=== PATIENT | male | born 1955 | race Caucasian/White ===

== ENCOUNTER 2020-03-15 16:44 | Inpatient (IN) | payer OTHER ==
[~2020-03-15] VITALS: Ht 193 cm; Wt 78.6 kg
[2020-03-15 17:42] LABS: Basophils # (auto) 0 10 ^3/uL (0-0.2); Basophils % (auto) 0.4 % (0.0-2.0); Eosinophils # (auto) 0.1 10 ^3/uL (0-0.8); Eosinophils % (auto) 0.8 % (0.0-7.0); Hematocrit 42.3 % (41.0-53.0); Hemoglobin 14.9 g/dL (13.5-17.5); Lymphocytes # (auto) 1.7 10 ^3/uL (0.4-5.4); Lymphocytes % (auto) 22.7 % (10.0-50.0); Mean Corpuscular Hemoglobin 32.6 pg (28.0-32.0); Mean Corpuscular Hgb Conc. 35.3 g/dL (32.0-36.0); Mean Corpuscular Volume 92.4 fL (80.0-100.0); Monocytes # (auto) 0.5 10 ^3/uL (0-1.3); Monocytes % (auto) 6.3 % (0.0-12.0); Neutrophils # (auto) 5.2 10 ^3/uL (1.6-8.6); Neutrophils % (auto) 69.8 % (37.0-80.0); Nucleated Red Blood Cells % 0.1 %; Platelet Count (auto) 238 10^3/uL (140-450); Red Blood Cells 4.57 10^6/uL (4.5-5.90); Red Cell Distribution Width 13.4 % (11.8-14.3); White Blood Cell 7.5 10^3/uL (4.4-10.8)
[2020-03-15 17:57] LABS: Albumin 3.8 g/dL (3.4-5.0); Anion Gap 7 (5-15); Blood Urea Nitrogen 9 mg/dL (7-18); Calcium 8.7 mg/dL (8.5-10.1); Carbon Dioxide 25 mmol/L (21-32); Chloride 101 mmol/L (98-107); Glucose 77 mg/dL (74-106); Potassium 4.2 mmol/L (3.5-5.1); Sodium 133 mmol/L (136-145)
[2020-03-15 17:59] LABS: Alanine Aminotransferase 21 U/L (16-61); Aspartate Aminotransferase 14 U/L (15-37); BUN/Creatinine Ratio 9.9; GFR African American 108 mL/min; GFR Non-African American 89 mL/min
[2020-03-15 18:03] LABS: Alkaline Phosphatase 63 U/L (45-117); Total Protein 7.3 g/dL (6.4-8.2)
[2020-03-15 19:16] LABS: CRP High Sensitivity 0.21 mg/dL (< 0.3)
[2020-03-15] MEDS ORDERED: FUROSEMIDE 40 MG/4 ML VIAL IV ONE (19:30)
[2020-03-15] MEDS ORDERED: MORPHINE SULFATE 4 MG/ML SYR/VIAL IV ONE (20:00)
[2020-03-15] MEDS ORDERED: HYDROmorphone HCL 2 MG/ML VL IV ONE (21:00)
[2020-03-15] MEDS ORDERED: ONDANSETRON HCL 4 MG/2 ML VIAL IV PRN (21:45)
[2020-03-15] MEDS ORDERED: TEMAZEPAM 15 MG CAP PO PRN (21:45)
[2020-03-15] MEDS ORDERED: ACETAMINOPHEN 325 MG TAB PO PRN (21:45)
[2020-03-15] MEDS ORDERED: cloNIDine HCL 0.1 MG TAB PO PRN (21:45)
[2020-03-15] MEDS ORDERED: NITROGLYCERIN 0.4 MG SL TAB SL PRN (22:00)
[2020-03-15] MEDS: METOPROLOL TARTRATE 25 MG TAB PO SCH (23:07)
[2020-03-15] MEDS: FAMOTIDINE 20 MG TAB PO SCH (23:08)
[2020-03-16 02:49] LABS: Cholesterol 256 mg/dL (< 200); HDL Cholesterol 55 mg/dL (40-59); LDL Cholesterol 180 mg/dL (< 100); Triglycerides 66 mg/dL (< 150)
[2020-03-16 03:42] VITALS: BP 119/80
[2020-03-16 04:40] LABS: Basophils # (auto) 0.1 10 ^3/uL (0-0.2); Eosinophils # (auto) 0.1 10 ^3/uL (0-0.8); Hematocrit 42.9 % (41.0-53.0); Hemoglobin 14.7 g/dL (13.5-17.5); Lymphocytes # (auto) 1.5 10 ^3/uL (0.4-5.4); Lymphocytes % (auto) 26.2 % (10.0-50.0); Mean Corpuscular Hemoglobin 31.9 pg (28.0-32.0); Mean Corpuscular Hgb Conc. 34.2 g/dL (32.0-36.0); Mean Corpuscular Volume 93.3 fL (80.0-100.0); Monocytes # (auto) 0.5 10 ^3/uL (0-1.3); Monocytes % (auto) 9.2 % (0.0-12.0); Neutrophils # (auto) 3.7 10 ^3/uL (1.6-8.6); Neutrophils % (auto) 62.6 % (37.0-80.0); Nucleated Red Blood Cells % 0.2 %; Platelet Count (auto) 204 10^3/uL (140-450); Red Blood Cells 4.59 10^6/uL (4.5-5.90); Red Cell Distribution Width 13.4 % (11.8-14.3); White Blood Cell 5.8 10^3/uL (4.4-10.8)
[2020-03-16 05:01] LABS: BUN/Creatinine Ratio 11.3; Calcium 8.3 mg/dL (8.5-10.1); Potassium 3.9 mmol/L (3.5-5.1)
--- NOTE | 2020-03-16 06:18 | NUR ---
RESPIRATORY HR 86, RR 18, SPO2 99% ON 5 L NC, BS CLEAR AND DIMINISHED. NO S/S OF RESPIRATORY DISTRESS NOTED. PT STATES HIS BREATHING FEELS A WHOLE LOT BETTER. INFORMED PT TO CALL IF FEELING SOB OR WHEEZING.PRN MED NEB TX NOT INDICATED AT THIS TIME.
[2020-03-16] MEDS: FUROSEMIDE 20 MG TAB PO SCH ×2 (06:19→17:44)
[2020-03-16] MEDS: ALBUTEROL SULF 2.5 MG/0.5ML(0.5%) NEB SOLN NEB PRN ×2 (08:22→12:41)
[2020-03-16] MEDS: ASPirin 81 mg TAB PO SCH (09:05)
[2020-03-16] MEDS: ENOXAPARIN SOD 40 MG/0.4 ML SYRINGE SC SCH (09:06)
[2020-03-16] MEDS: FAMOTIDINE 20 MG TAB PO SCH ×2 (09:06→20:53)
[2020-03-16] MEDS: METOPROLOL TARTRATE 25 MG TAB PO SCH ×2 (09:06→21:17)
[2020-03-16] MEDS: CLOPIDOGREL BISULFATE 75 MG TAB PO SCH (09:06)
[2020-03-16] MEDS: HYDROcodone-ACET 5/325MG TAB PO PRN ×2 (13:10→20:54)
--- NOTE | 2020-03-16 15:10 | NUR ---
Telemetry admit from [facility] admitted to Telemetry unit,Patient oriented to primary RN, unit, room, bed, and unit policies regarding patient care and visiting hours. Patient now on continuous telemetry monitoring, tele box #[id number] and telemetry reading on arrival to unit is sinus rhythm 69. Patient placed on bedside oxygen at 1liter nasal cannula,vital signs taken bp133/80,temp:97.8,rr18,hr 72,o2 saturaton 95%,c/o back and neck chronic pain 01/15,patient stated does not need pain medication. call light within reach,encouraged to call for assistance,needs attended. All questions and concerns addressed, patient verbalized understanding.
[2020-03-16 16:37] VITALS: BP 113/70
[2020-03-16 17:00] VITALS: BP 133/80
[2020-03-16] MEDS ORDERED: TIOT1AER2 IN (18:00)
[2020-03-16] MEDS ORDERED: ASPI-404 PO (18:00)
[2020-03-16] MEDS ORDERED: IPRAAER6 IN (18:00)
[2020-03-16] MEDS ORDERED: CLOP75TA28 PO (18:00)
[2020-03-16] MEDS ORDERED: [UNRECOGNIZED DRUG - CODE] PO (18:00)
[2020-03-16] MEDS ORDERED: ROSU40TA PO (18:02)
[2020-03-16] MEDS: ALBUTEROL SULF 2.5 MG/0.5ML(0.5%) NEB SOLN NEB SCH (18:53)
[2020-03-16] MEDS: IPRATROPIUM BROM 0.5 MG/2.5ML INH SOL NEB SCH (18:53)
[2020-03-16] MEDS: BUDESONIDE (INHALATION) 0.5 MG/2 ML NEB NEB SCH (18:53)
--- NOTE | 2020-03-16 19:00 | NUR ---
status unchanged no distress no discomfort
--- NOTE | 2020-03-16 19:50 | NUR ---
Opening Shift Note Assumed care of patient, awake and alert, oriented x 4, follows direction, clear speech. On oxygen at 1L via NC with even and unlabored respirations. No S/S of distress/SOB. Patient using urinal independently. Patient turns in bed independently. Bed in lowest locked position with side rails up x 2 and call light within reach. Instructed on POC and to call for assist PRN, will continue to monitor for changes Q1hr and PRN.
[2020-03-16] MEDS: ATORVASTATIN 20 MG TAB PO SCH (20:54)
[2020-03-16 22:00] VITALS: BP 126/78
[2020-03-16 23:17] LABS: Urine Bacteria NONE SEEN /hpf (None Seen); Urine Blood Negative /uL (Negative); Urine Specific Gravity 1.016 (1.001-1.035); Urine WBC <1 /hpf (0 - 3)
[2020-03-17] MEDS: IPRATROPIUM BROM 0.5 MG/2.5ML INH SOL NEB SCH ×4 (00:52→19:12)
[2020-03-17] MEDS: ALBUTEROL SULF 2.5 MG/0.5ML(0.5%) NEB SOLN NEB SCH ×4 (00:52→19:12)
--- NOTE | 2020-03-17 00:52 | NUR ---
Respiratory note: PT REFUSING 0000 SCHEDULED BREATHING TX AT THIS TIME AND WANTS TO SLEEP. PT REMAINS ON NC1L. NO RESP DISTRESS NOTED. SPO2 95%, HR 74, RR 16. WILL CONTINUE TO MONITOR PT T/O SHIFT.
[2020-03-17] MEDS: FUROSEMIDE 20 MG TAB PO SCH ×2 (04:57→17:55)
[2020-03-17 05:14] VITALS: BP 124/67
[2020-03-17 05:45] LABS: Basophils # (auto) 0.1 10 ^3/uL (0-0.2); Basophils % (auto) 0.9 % (0.0-2.0); Eosinophils # (auto) 0.1 10 ^3/uL (0-0.8); Eosinophils % (auto) 1.7 % (0.0-7.0); Hematocrit 41.9 % (41.0-53.0); Hemoglobin 14.4 g/dL (13.5-17.5); Lymphocytes # (auto) 1.5 10 ^3/uL (0.4-5.4); Lymphocytes % (auto) 25.9 % (10.0-50.0); Mean Corpuscular Hemoglobin 31.9 pg (28.0-32.0); Mean Corpuscular Hgb Conc. 34.4 g/dL (32.0-36.0); Mean Corpuscular Volume 92.8 fL (80.0-100.0); Monocytes # (auto) 0.5 10 ^3/uL (0-1.3); Neutrophils # (auto) 3.6 10 ^3/uL (1.6-8.6); Neutrophils % (auto) 63.5 % (37.0-80.0); Nucleated Red Blood Cells % 0.1 %; Platelet Count (auto) 193 10^3/uL (140-450); Red Blood Cells 4.52 10^6/uL (4.5-5.90); Red Cell Distribution Width 13.3 % (11.8-14.3); White Blood Cell 5.7 10^3/uL (4.4-10.8)
[2020-03-17 06:00] LABS: INR 0.98 (0.9-1.15)
[2020-03-17 06:35] LABS: BUN/Creatinine Ratio 18.4; Calcium 8.4 mg/dL (8.5-10.1); Potassium 3.9 mmol/L (3.5-5.1)
--- NOTE | 2020-03-17 06:49 | NUR ---
Closing Note patient resting in bed with even and unlabored respirations, no s/s of distress. Bed in lowest locked position with side rails up x2 and call light within reach.
--- NOTE | 2020-03-17 07:20 | NUR ---
Opening Shift Note RECEIVED REPORT FROM NOC RN. Assumed care of patient, awake and alert. No S/S of distress/SOB,C/O BACK AND NECK PAIN,PATIENT REASSURED WILL MEDICATE FOR PAIN. BED IN LOWEST, LOCKED POSITION WITH SIDE RAILS UP x2 AND CALL LIGHT WITHIN REACH. Instructed on POC,call light within reach patient reminded instructed to call for assistance.patient verbalized understanding.will continue to monitor for changes Q1hr and PRN.
[2020-03-17] MEDS: BUDESONIDE (INHALATION) 0.5 MG/2 ML NEB NEB SCH ×2 (07:41→19:16)
[2020-03-17] MEDS: HYDROcodone-ACET 5/325MG TAB PO PRN ×2 (08:22→17:13)
--- NOTE | 2020-03-17 08:22 | NUR ---
C/O CHRONIC BACK AND NECK PAIN SCALE 8/10,MEDICATED WITH NORCO 5/325 MG SEE eMAR FOR DETAIL
[2020-03-17 09:00] VITALS: BP 133/80
--- NOTE | 2020-03-17 09:25 | NUR ---
MD VISIT DR. BRODY HERE TO SEE AND EXAMINED PATIENT,RECEIVED ORDER,SEE ORDER WRITTEN
--- NOTE | 2020-03-17 09:52 | NUR ---
WRONG TIME Addendum: 03/17/20 at 0952 by MARTA STEWART, RT RT Amended: Links added.
[2020-03-17] MEDS: FAMOTIDINE 20 MG TAB PO SCH ×2 (10:03→22:09)
[2020-03-17] MEDS: ASPirin 81 mg TAB PO SCH (10:04)
[2020-03-17] MEDS: CLOPIDOGREL BISULFATE 75 MG TAB PO SCH (10:04)
[2020-03-17] MEDS: METOPROLOL TARTRATE 25 MG TAB PO SCH ×2 (10:04→21:41)
[2020-03-17] MEDS: ENOXAPARIN SOD 40 MG/0.4 ML SYRINGE SC SCH (10:05)
[2020-03-17 12:37] VITALS: BP 121/86
[2020-03-17 16:37] VITALS: BP 110/70
--- NOTE | 2020-03-17 19:40 | NUR ---
Opening Shift Note Assumed care of patient, alert and oriented x 4, follows direction. On room air with even and unlabored respirations. No S/S of distress/SOB. Patient using urinal independently. Patient turns in bed independently. Bed in lowest locked position with side rails up x 2 and call light within reach. Instructed on POC and to call for assist PRN, will continue to monitor for changes Q1hr and PRN.
[2020-03-17] MEDS: ATORVASTATIN 20 MG TAB PO SCH (21:40)
[2020-03-17 22:00] VITALS: BP_SYST 125; BP_SYST 128; BP_DIAS 70; BP_DIAS 72
[2020-03-18] MEDS: ALBUTEROL SULF 2.5 MG/0.5ML(0.5%) NEB SOLN NEB SCH ×4 (00:28→11:44)
[2020-03-18] MEDS: IPRATROPIUM BROM 0.5 MG/2.5ML INH SOL NEB SCH ×4 (00:28→11:44)
[2020-03-18 05:00] VITALS: BP 129/77
[2020-03-18] MEDS: FUROSEMIDE 20 MG TAB PO SCH (05:55)
[2020-03-18] MEDS: HYDROcodone-ACET 5/325MG TAB PO PRN (06:01)
[2020-03-18 06:02] LABS: Basophils # (auto) 0 10 ^3/uL (0-0.2); Basophils % (auto) 0.6 % (0.0-2.0); Eosinophils # (auto) 0.1 10 ^3/uL (0-0.8); Eosinophils % (auto) 2.8 % (0.0-7.0); Hematocrit 43.7 % (41.0-53.0); Hemoglobin 15.2 g/dL (13.5-17.5); Lymphocytes # (auto) 1.6 10 ^3/uL (0.4-5.4); Lymphocytes % (auto) 30.3 % (10.0-50.0); Mean Corpuscular Hemoglobin 31.9 pg (28.0-32.0); Mean Corpuscular Hgb Conc. 34.7 g/dL (32.0-36.0); Mean Corpuscular Volume 92.1 fL (80.0-100.0); Monocytes # (auto) 0.4 10 ^3/uL (0-1.3); Monocytes % (auto) 7.8 % (0.0-12.0); Neutrophils % (auto) 58.5 % (37.0-80.0); Nucleated Red Blood Cells % 0.1 %; Platelet Count (auto) 196 10^3/uL (140-450); Red Blood Cells 4.74 10^6/uL (4.5-5.90); Red Cell Distribution Width 13.5 % (11.8-14.3); White Blood Cell 5.1 10^3/uL (4.4-10.8)
[2020-03-18 06:15] LABS: BUN/Creatinine Ratio 12.6; Calcium 8.5 mg/dL (8.5-10.1); Potassium 3.8 mmol/L (3.5-5.1)
[2020-03-18] MEDS: BUDESONIDE (INHALATION) 0.5 MG/2 ML NEB NEB SCH (07:55)
--- NOTE | 2020-03-18 08:00 | NUR ---
Morning note Patient resting in bed with even and unlabored respirations, no distress noted. Instructed patient on POC, fall precautions and to call for assistance as needed. Patient verbalized understanding. Fall precautions in place with call light within reach.
[2020-03-18 08:35] VITALS: BP 128/79
[2020-03-18] MEDS: ASPirin 81 mg TAB PO SCH (08:43)
[2020-03-18] MEDS: CLOPIDOGREL BISULFATE 75 MG TAB PO SCH (08:43)
[2020-03-18] MEDS: ENOXAPARIN SOD 40 MG/0.4 ML SYRINGE SC SCH (08:44)
[2020-03-18] MEDS: FAMOTIDINE 20 MG TAB PO SCH (08:44)
[2020-03-18] MEDS: METOPROLOL TARTRATE 25 MG TAB PO SCH (08:44)
--- NOTE | 2020-03-18 09:20 | NUR ---
Patient okay for discharge per Mrs. Vinh N.P.
[2020-03-18 12:30] VITALS: BP 130/77
--- NOTE | 2020-03-18 13:30 | NUR ---
PT REPORTS THAT HE WALKS FINE AND DOES NOT NEED P.T.
--- NOTE | 2020-03-18 14:53 | NUR ---
Spoke with Dr. Perez RE: discharge order MD attempting to speak with Mrs. Justice RE: discharge prescriptions.
--- NOTE | 2020-03-18 14:54 | NUR ---
Called telemonitor tech to clarify heart rhythm during this hospital visit. Patient has been in SR during this hospital stay per telemonitor tech. Notified Dr. Perez. verbalized understanding.
[2020-03-18] MEDS ORDERED: ASPI81CH43 PO (14:56)
[2020-03-18] MEDS ORDERED: FUR20T PO (14:56)
[2020-03-18] MEDS ORDERED: MET25T PO (14:56)
[2020-03-18] MEDS ORDERED: ATOR20TA50 PO (14:56)
[2020-03-18] MEDS ORDERED: CLOP75TA28 PO (14:56)
[2020-03-18] MEDS ORDERED: LOSA25TA38 PO (15:00)
--- NOTE | 2020-03-18 16:50 | NUR ---
Discharge Discharge education and paperwork provided to the patient per MD order. Patient verbalized understanding. Patient instructed to schedule a follow up appointment with PCP once home in [place]. Patient verbalized understanding. IV removed with clean technique, catheter intact. Dressing and pressure held. patient tolerated well, no trauma to site. Telemonitor removed. Patient reports having all personal belongings. Respirations even and unlabored, no distress noted. Patient requesting to take a shower prior to leaving facility. Shower supplies provided. Fall education provided. patient verbalized understanding. Instructed patient to notify staff once finished. Patient verbalized understanding.
--- NOTE | 2020-03-18 17:14 | NUR ---
Patient ambulated to hospital lobby Patient refused wheelchair. Patient ambulated with a steady gait to hospital lobby accompanied by staff member. Respirations even and unlabored, no distress noted. Patient reports having all personal belongings.
== END 2020-03-18 17:52 | disposition home or self-care (01) | DRG 291 ==
LOC: ER 16:44 → TELE 16:45 → TELE-WESTW 03-16 15:28
PROVIDERS: ADMIT Nurse Practitioner; ATTEND Internal Medicine Nephrology
DX: I11.0 Hypertensive heart disease with heart failure (principal); J96.01 Acute respiratory failure with hypoxia; E87.1 Hypo-osmolality and hyponatremia; I50.43 Acute on chronic combined systolic (congestive) and diastolic (congestive) heart failure; J44.9 Chronic obstructive pulmonary disease, unspecified; Z86.73 Personal history of transient ischemic attack (TIA), and cerebral infarction without residual deficits; E78.5 Hyperlipidemia, unspecified; G89.29 Other chronic pain; M54.9 Dorsalgia, unspecified; Z80.9 Family history of malignant neoplasm, unspecified; Z83.3 Family history of diabetes mellitus; Z90.49 Acquired absence of other specified parts of digestive tract; Z87.891 Personal history of nicotine dependence
CPT/HCPCS: 36415; 71045; 80048; 80053; 80061; 81001; 82728; 83605; 83615; 83880; 84443; 84484; 85025; 85379; 85610; 86141; 87040; 93005; 93306; 93886; 93970; 94640; G0378